=== PATIENT | male | born 1995 | race Hispanic/Latino ===

== ENCOUNTER 2018-10-13 23:35 | Observation (INO) | payer BC, OTHER ==
[2018-10-14 00:20] LABS: Absolute Lymphocytes (CBC) 2.4 K/uL (0.7-4.9); Basophils % 0.6 % (0-1.3); Hematocrit 44.9 % (39.6-49.0); Lymphocytes % 15.9 % (15.3-44.8); MPV 10.4 fL (7.6-11.3); RBC Red Blood Cell Count 5.73 M/uL (4.33-5.43)
[2018-10-14] MEDS ORDERED: NA CHLORIDE 0.9% 1,000 ML ONE (00:39)
[2018-10-14 00:41] LABS: ALT/SGPT 17 U/L (12-78); AST/SGOT 18 U/L (15-37); Albumin 4.6 g/dL (3.4-5.0); Alkaline Phosphatase 74 U/L (45-117); BUN Blood Urea Nitrogen 13 mg/dL (7-18); Bicarbonate 28 mmol/L (21-32); Bilirubin Direct 0.1 mg/dL (0-0.2); Bilirubin Total 0.6 mg/dL (0.2-1.0); Glucose Level 95 mg/dL (74-106); Lipase 96 U/L (73-393); Potassium 3.2 mmol/L (3.5-5.1); Protein, Total 7.6 g/dL (6.4-8.2); Sodium Level 141 mmol/L (136-145)
[2018-10-14] MEDS ORDERED: PIPER/TAZO/NS 3.375gm 3.375 GM/100 ML BAG ONE (01:48)
--- NOTE | 2018-10-14 01:54 | ER ---
Nurse's Notes [facility] Name: Rodrigo Mart III Age: 23 yrs Sex: Male : 1995 Arrival Date: 10/13/2018 Time: 23:39 Bed 6 Private MD: Diagnosis: Acute appendicitis Presentation: 10/13 23:43 Presenting complaint: Patient states: right lower quadrant pain since 1100. pt denies ak1 N/V/D. Transition of care: patient was not received from another setting of care. Onset of symptoms is unknown. Risk Assessment: Do you want to hurt yourself or someone else? Patient reports no desire to harm self or others. Initial Sepsis Screen: Does the patient meet any 2 criteria? No. Patient's initial sepsis screen is negative. Does the patient have a suspected source of infection? No. Patient's initial sepsis screen is negative. Care prior to arrival: None. 23:43 Method Of Arrival: Ambulatory ak1 23:43 Acuity: DIXON 3 ak1 Triage Assessment: 23:45 General: Appears in no apparent distress. Behavior is calm, cooperative. Pain: ak1 Complains of pain in right lower quadrant. Historical: - Allergies: 23:45 No Known Allergies; ak1 - Home Meds: 23:45 None [Active]; ak1 - PMHx: 23:45 None; ak1 - PSHx: 23:45 None; ak1 - Immunization history:: Adult Immunizations unknown. - Social history:: Smoking status: Patient/guardian denies using tobacco. - Ebola Screening: : No symptoms or risks identified at this time. Screenin:47 Abuse screen: Denies threats or abuse. Denies injuries from another. Nutritional ak1 screening: No deficits noted. Tuberculosis screening: No symptoms or risk factors identified. Fall Risk None identified. Assessment: 10/14 00:12 General: Appears in no apparent distress. Behavior is appropriate for age. Pain: lp1 Complains of pain in right lower quadrant. Neuro: Level of Consciousness is awake, alert, obeys commands. Cardiovascular: Patient's skin is warm and dry. Respiratory: Respiratory effort is even, unlabored. GI: Abdomen is flat, Bowel sounds present X 4 quads. Abdomen is tender to palpation in right lower quadrant. : Denies burning with urination. EENT: No signs and/or symptoms were reported regarding the EENT system. Derm: Skin is pink, warm \T\ dry. Musculoskeletal: No deficits noted. 01:30 Reassessment: Provider at bedside to discuss results with patient. lp1 02:40 Reassessment: Patient complaint of RLQ abdominal pain; See Avisena orders for med lp1 administration. Vital Signs: 10/13 23:45 BP 136 / 87; Pulse 73; Resp 16; Temp 98.0(TE); Pulse Ox 100% on R/A; Weight 71.21 kg ak1 (R); Height 5 ft. 7 in. (170.18 cm) (R); Pain 09/02; 10/14 01:00 BP 139 / 81; Pulse 70; Resp 16; Pulse Ox 100% on R/A; lp1 02:07 BP 129 / 90; Pulse 72; Resp 16; Pulse Ox 100% on R/A; lp1 10/13 23:45 Body Mass Index 24.59 (71.21 kg, 170.18 cm) ak1 ED Course: 10/13 23:39 Patient arrived in ED. ds1 23:44 Triage completed. ak1 23:45 Arm band placed on Patient placed in an exam room, on a stretcher, Patient notified of ak1 wait time. 23:47 Patient has correct armband on for positive identification. Bed in low position. Call ak1 light in reach. Side rails up X 1. 23:55 Saul Fair NP is PHCP. pm1 23:55 Gonzalo Celeste MD is Attending Physician. pm1 23:56 Marge Grewal RN is Primary Nurse. lp1 10/14 00:12 Inserted saline lock: 20 gauge in right antecubital area, using aseptic technique. lp1 Blood collected. 00:32 Radiology exam delayed due to lab results not completed at this time. (BUN/Creatinine). eh 01:04 CT completed. Patient tolerated procedure well. Patient moved to CT via stretcher. Patient moved back from CT. 01:35 CT Abd/Pelvis - IV Contrast Only In Process Unspecified. EDMS 01:37 Willie Juarez MD is Hospitalizing Provider. pm1 02:06 No provider procedures requiring assistance completed. Patient admitted, IV remains in lp1 place. Administered Medications: 00:46 Drug: NS 0.9% 1000 ml Route: IV; Rate: 1000 ml; Site: left antecubital; bb 01:51 Follow up: IV Status: Completed infusion; IV Intake: 1000ml lp1 02:40 Drug: Zosyn 3.375 grams Route: IVPB; Infused Over: 60 mins; Site: right antecubital; lp1 02:54 Follow up: IV Status: Infusion continued upon admission lp1 Intake: 01:51 IV: 1000ml; Total: 1000ml. lp1 Outcome: 01:37 Decision to Hospitalize by Provider. pm1 02:06 Condition: stable lp1 02:06 Instructed on the need for admit. 02:25 Admitted to Med/surg accompanied by tech, family with patient, via wheelchair, room lp1 219, with chart, Report called to Sue Ogden RN 02:45 Patient left the ED. lp1 Signatures: Dispatcher [employer] EDMS Jaciel Schmitt Demi ds1 Ibeth Martínez RN RN bb Marge Grewal RN RN lp1 Cora Garcia RN RN ak1 Saul Fair, CAFETERIA TABLE ATTENDANT CAFETERIA TABLE ATTENDANT pm1 Corrections: (The following items were deleted from the chart) 02:56 02:56 Patient left the ED. lp1 lp1
--- NOTE | 2018-10-14 01:55 | EDPHYS ---
Physician Documentation [facility] Name: Rodrigo Mart III Age: 23 yrs Sex: Male : 1995 Arrival Date: 10/13/2018 Time: 23:39 Bed 6 Private MD: ED Physician Gonzalo Celeste HPI: 10/14 01:18 This 23 yrs old Male presents to ER via Ambulatory with complaints of pm1 Abdominal Pain. 01:18 The patient presents with abdominal pain right lower quadrant. Onset: The pm1 symptoms/episode began/occurred yesterday, at 11:00. The symptoms do not radiate. Associated signs and symptoms: none. Pertinent negatives: nausea, vomiting, and diarrhea, chest pain, shortness of breath, testicular pain. The symptoms are described as crampy. Modifying factors: The symptoms are alleviated by nothing, the symptoms are aggravated by nothing. Severity of pain: in the emergency department the pain is unchanged. The patient has not experienced similar symptoms in the past. The patient has not recently seen a physician. Historical: - Allergies: 10/13 23:45 No Known Allergies; ak1 - Home Meds: 23:45 None [Active]; ak1 - PMHx: 23:45 None; ak1 - PSHx: 23:45 None; ak1 - Immunization history:: Adult Immunizations unknown. - Social history:: Smoking status: Patient/guardian denies using tobacco. - Ebola Screening: : No symptoms or risks identified at this time. ROS: 10/14 01:18 Constitutional: Negative for fever, chills, and weight loss, Eyes: Negative for injury, pm1 pain, redness, and discharge, ENT: Negative for injury, pain, and discharge, Neck: Negative for injury, pain, and swelling, Cardiovascular: Negative for chest pain, palpitations, and edema, Respiratory: Negative for shortness of breath, cough, wheezing, and pleuritic chest pain. Back: Negative for injury and pain, : Negative for injury, bleeding, discharge, and swelling, MS/Extremity: Negative for injury and deformity, Skin: Negative for injury, rash, and discoloration, Neuro: Negative for headache, weakness, numbness, tingling, and seizure. Abdomen/GI: Positive for abdominal pain, of the right lower quadrant, Negative for nausea, vomiting, and diarrhea. Exam: 01:18 Constitutional: This is a well developed, well nourished patient who is awake, alert, pm1 and in no acute distress. Head/Face: Normocephalic, atraumatic. Eyes: Pupils equal round and reactive to light, extra-ocular motions intact. Lids and lashes normal. Conjunctiva and sclera are non-icteric and not injected. Cornea within normal limits. Periorbital areas with no swelling, redness, or edema. ENT: Nares patent. No nasal discharge, no septal abnormalities noted. Tympanic membranes are normal and external auditory canals are clear. Oropharynx with no redness, swelling, or masses, exudates, or evidence of obstruction, uvula midline. Mucous membranes moist. Neck: Trachea midline, no thyromegaly or masses palpated, and no cervical lymphadenopathy. Supple, full range of motion without nuchal rigidity, or vertebral point tenderness. No Meningismus. Chest/axilla: Normal chest wall appearance and motion. Nontender with no deformity. No lesions are appreciated. Cardiovascular: Regular rate and rhythm with a normal S1 and S2. No gallops, murmurs, or rubs. Normal PMI, no JVD. No pulse deficits. Respiratory: Lungs have equal breath sounds bilaterally, clear to auscultation and percussion. No rales, rhonchi or wheezes noted. No increased work of breathing, no retractions or nasal flaring. Abdomen/GI: Soft, non-tender, with normal bowel sounds. No distension or tympany. No guarding or rebound. No evidence of tenderness throughout. Back: No spinal tenderness. No costovertebral tenderness. Full range of motion. Skin: Warm, dry with normal turgor. Normal color with no rashes, no lesions, and no evidence of cellulitis. MS/ Extremity: Pulses equal, no cyanosis. Neurovascular intact. Full, normal range of motion. 01:18 Neuro: Orientation: is normal, Motor: is normal, moves all fours. Vital Signs: 10/13 23:45 BP 136 / 87; Pulse 73; Resp 16; Temp 98.0(TE); Pulse Ox 100% on R/A; Weight 71.21 kg ak1 (R); Height 5 ft. 7 in. (170.18 cm) (R); Pain 7/10; 10/14 01:00 BP 139 / 81; Pulse 70; Resp 16; Pulse Ox 100% on R/A; lp1 02:07 BP 129 / 90; Pulse 72; Resp 16; Pulse Ox 100% on R/A; lp1 10/13 23:45 Body Mass Index 24.59 (71.21 kg, 170.18 cm) ak1 MDM: 10/13 23:[address] [facility] 10/14 01:19 Data reviewed: vital signs. Data interpreted: Pulse oximetry: on room air is 100 %. pm1 Interpretation: normal. 01:33 Counseling: I had a detailed discussion with the patient and/or guardian regarding: the pm1 historical points, exam findings, and any diagnostic results supporting the discharge/admit diagnosis, lab results, radiology results, the need for further work-up and treatment in the hospital. 01:41 Physician consultation: Willie Juarez MD was called at 01:41, was contacted at 01:41, pm1 regarding admission, patient's condition, and will see patient In AM. 10/13 23:55 Order name: Basic Metabolic Panel pm1 10/13 23:55 Order name: CBC with Diff; Complete Time: 01:20 pm1 10/13 23:55 Order name: Creatinine for Radiology; Complete Time: 01:20 pm1 10/13 23:55 Order name: Hepatic Function pm1 10/13 23:55 Order name: Lipase pm1 10/13 23:56 Order name: Basic Metabolic Panel EDWA 10/13 23:55 Order name: IV Saline Lock; Complete Time: 00:13 pm1 10/13 23:55 Order name: Labs collected and sent; Complete Time: 00:13 pm1 10/14 00:20 Order name: CT Abd/Pelvis - IV Contrast Only pm1 10/14 00:21 Order name: NPO; Complete Time: 00:47 pm1 Administered Medications: 00:46 Drug: NS 0.9% 1000 ml Route: IV; Rate: 1000 ml; Site: left antecubital; bb 01:51 Follow up: IV Status: Completed infusion; IV Intake: 1000ml lp1 02:40 Drug: Zosyn 3.375 grams Route: IVPB; Infused Over: 60 mins; Site: right antecubital; lp1 02:54 Follow up: IV Status: Infusion continued upon admission lp1 Disposition: 09:37 Co-signature as Attending Physician, Gonzalo Celeste MD I agree with the assessment and justus plan of care. Disposition: 10/14/18 01:37 Hospitalization ordered by Willie Juarez for Observation. Preliminary diagnosis is Acute appendicitis. - Bed requested for Telemetry/MedSurg (observation). - Status is Observation. lp1 - Condition is Stable. - Problem is new. - Symptoms have improved. UTI on Admission? No Signatures: Dispatcher [employer] EDWA Nancy Croft, RN RN Gonzalo Chen MD MD cha Ballard, Brenda, RN RN bb Marge Grewal, RN RN lp1 Cora Garcia, RN RN ak1 Saul Fair, NEWS EDITOR NEWS EDITOR pm1 Corrections: (The following items were deleted from the chart) 01:51 01:37 Hospitalization Ordered by Willie Juarez MD for Observation. Preliminary diagnosis is Acute appendicitis. Bed requested for Telemetry/MedSurg (observation). Status is Observation. Condition is Stable. Problem is new. Symptoms have improved. UTI on Admission? No. pm1 02:56 01:51 10/14/2018 01:37 Hospitalization Ordered by Willie Juarez MD for Observation. lp1 Preliminary diagnosis is Acute appendicitis. Bed requested for Telemetry/MedSurg (observation). Status is Observation. Condition is Stable. Problem is new. Symptoms have improved. UTI on Admission? No. mw
[2018-10-14] MEDS ORDERED: ONDANSETRON 4 MG/2 ML VIAL IV PRN (02:32)
[2018-10-14] MEDS: MORPHINE 4 MG/ML SYR IV PRN ×3 (02:45→22:10)
[2018-10-14 02:51] VITALS: BMI 24.5
[2018-10-14] MEDS: NA CHLORIDE 0.9% 1,000 ML IV SCH ×2 (03:01→10:32)
[2018-10-14] MEDS ORDERED: PIPER/TAZO/NS 3.375gm 3.375 GM/100 ML BAG IVPB SCH ×2 (06:00→12:00)
[2018-10-14] MEDS: PIPER/TAZO/NS 3.375gm 3.375 GM/100 ML BAG IVPB SCH ×2 (09:41→16:57)
--- NOTE | 2018-10-14 11:11 | RAD REPORT ---
EXAM DESCRIPTION: NICOLE GALLAGHER [id number] - Abdomen Pelvis W Contrast ADDENDUM #1 THIS REPORT CONTAINS FINDINGS THAT MAY BE CRITICAL TO PATIENT'S CARE: The findings were verbally discussed via telephone conference with Gonzalo Celeste by Dr. Bowman on 10/14/2018 1:32 AM CDT. The results were acknowledged and understood. Electronically signed by: Shay Bowman DO 10/14/2018 1:32 AM CDT End of Addendum EXAM DESCRIPTION: CT Abdomen and Pelvis With Intravenous Contrast CLINICAL HISTORY: The patient is 23 years old and is Male; RLQ PAIN TECHNIQUE: Axial computed tomography images of the abdomen and pelvis with intravenous contrast. S agittal and coronal reformatted images were created and reviewed. This CT exam was performed using one or more of the following dose reduction techniques: automated exposure control, adjustment of t he mA and/or kV according to patient size, and/or use of iterative reconstruction technique. COMPARISON: None. FINDINGS: LUNG BASES: Unremarkable. No mass. No consolidation. ABDOMEN: LIVER: Unremarkable. No mass. GALLBLADDER AND BILE DUCTS: Unremarkable. No calcified stones. No ductal dilation. PANCREAS: Unremarkable. No mass. No ductal dilation. SPLEEN: Unremarkable. No splenomegaly. ADRENALS: Unremarkable. No mass. KIDNEYS AND URETERS: Unremarkable. No solid mass. No hydronephrosis. STOMACH AND BOWEL: Enteric contrast in the distal small bowel. No obstruction. No mucosal thickening. PELVIS: APPENDIX: Severely thickened appendix measuring up to 1.5 cm with periappendiceal stranding and 6 mm appendicolith in its proximal aspect. Small appendicolith tearing and a distal appendix is also vi sualized. BLADDER: Bladder is decompressed. REPRODUCTIVE: Unremarkable as visualized. ABDOMEN and PELVIS: INTRAPERITONEAL SPACE: Small amount of free pelvic fluid. No free air. BONES/JOINTS: No acute fracture. No dislocation. SOFT TISSUES: Unremarkable. VASCULATURE: Unremarkable. No abdominal aortic aneurysm. LYMPH NODES: Unremarkable. No enlarged lymph nodes. IMPRESSION: 1. Findings suggestive of acute appendicitis with 6 mm proximal appendicolith. No perf oration or organized fluid collection at this time. 2. Small amount of free pelvic fluid. Electronically signed by: Shay Bowman DO 10/14/2018 1:30 AM CDT Due to temporary technical issues with the PACS/Fluency reporting system, reports are being signed by the in house radiologist as a courtesy to ensure prompt reporting. The interpreting radiologist is f ully responsible for the content of the report.
[2018-10-14] MEDS: KCL 20 MEQ/100 mL IVPB 20 MEQ/100 ML BAG IV SCH ×2 (12:00→14:00)
[2018-10-14] MEDS ORDERED: PROPOFOL 200 MG/20 ML VIAL IV ONE (12:50)
[2018-10-14] MEDS ORDERED: MIDAZOLAM HCL 2 MG/2 ML INJ ONE (12:51)
[2018-10-14] MEDS ORDERED: GLYCOPYRROLATE 0.2 MG/ML SYR ONE (12:51)
[2018-10-14] MEDS ORDERED: LIDOCAINE 2% MPF 5 ML VIAL ONE (12:52)
[2018-10-14] MEDS ORDERED: FENTANYL CITR 250 MCG/5 ML ONE (12:52)
[2018-10-14] MEDS ORDERED: NEOSTIGMINE 1 MG/ML -10 ML VIAL ONE (12:55)
[2018-10-14] MEDS ORDERED: ROCURONIUM 50 MG/5 ML VIAL IV ONE (12:55)
--- NOTE | 2018-10-14 13:39 | P.HP ---
Date of Service: 10/14/18 PC: This 23-year-old male presents emerged room with severe right lower quadrant abdominal pain for diagnosis and treatment. HPC: Patient has had a history of abdominal pain earlier the day. Pain intensified and finally came to the emergency room last night. Was complaining of right lower quadrant abdominal pain that hurt when he walks. PMH: Negative PSHx: Denies a prior surgeries SOC: No known allergy SYS REVIEW: No cough, wheeze, shortness of breath. No chest pain or palpitations. Denies any urinary complaints O/E awake alert vital signs are stable HEENT: Within normal limit Chest: Chest movement equal bilaterally ABD: Tender with guarding in the right lower quadrant LOCO: Intact DATA: Elevated white cell count, CT scan demonstrates acute appendicitis IMPRESSION: Acute abdomen with appendicitis PLAN: I will take to the operating room for laparoscopic possible open appendectomy. The risks of this procedure have been discussed. The possibility of bleeding, infection, injury to bowel and surrounding structures have been outlined. The possible need for an open and/or further surgeries and procedures was discussed. Abscess and other unforeseen complications were described. He understands and wants us to proceed.
[2018-10-14] MEDS ORDERED: Ringers Lactate 1,000 ML IV ONE (13:43)
[2018-10-14] MEDS ORDERED: KETOROLAC 30 MG/ML INJ ONE (14:51)
[2018-10-14] MEDS ORDERED: MEPERIDINE HCL 25 MG/0.5 ML ONE (15:04)
--- NOTE | 2018-10-14 15:09 | P.OP ---
Preoperative diagnosis: Acute suppurative appendicitis Postoperative diagnosis: The same Primary procedure: Laparoscopic appendectomy Anesthesia: General Estimated blood loss: Less than 10 cc Specimen: 1 appendix Operative Technique: The patient brought the operating room placed supine on the table general endotracheal anesthesia, the area of the abdomen was prepped with a DuraPrep solution, he was draped in usual aseptic manner. A subumbilical incision was made. This brought down through the skin and subcutaneous tissue. The Visiport was used to enter the peritoneal cavity and created pneumoperitoneum to approximately 12 mm of mercury. Under direct vision a 5 mm trocar was placed in the lower midline and another 1 on the right lateral side of the abdomen. With the patient placed in Trendelenburg and rolled to the left we could visualize the right lower quadrant. We could see that the cecum was adherent down in the the pelvis. All on the right lateral pelvic sidewall just at the brim of the pelvis there was an inflammatory process. This was dissected the omentum was removed and we could see that this was an inflamed appendix. It was also in the retroperitoneum at that point and crawled up port along the lateral sidewall. At then had an inferior connection and came medial to the cecum. This area was some mobilize after opening up the retroperitoneum. We could see that there was a small amount of seepage of the appendiceal contents in this area. This was contained using irrigation and suction. The base of the appendix was identified. A linear Stapler was placed across. The appendix was then divided at this point. The mesentery of the appendix was taken down using a vascular reload. This pus was placed into the Endo-Catch and brought out through the umbilical trocar site. Attention was turned back towards the right lower quadrant. This retroperitoneal space was then irrigated with a copious amount of saline solution until the effluent was clear. We were able to effectively aspirate any spillage it had occurred during the dissection. The appendix the cecum was then allowed the flap back into its normal position. The irrigating fluid was completely aspirated from the peritoneal cavity. The umbilical trocar site was approximated using the Endo Close an absorbable suture. The pneumoperitoneum was now collapsed, the suture tied, and lele applied to the skin. At the end of the procedure he was in a stable condition when sent to the recovery room. Needle sponge instrument count were correct. No drains were placed. Complications: None Transferred to: Recovery Room Condition: Good
[2018-10-14] MEDS: MORPHINE 4 MG/ML SYR ONE ×2 (15:27→15:34)
[2018-10-14 15:48] VITALS: O2SAT 99
[2018-10-14] MEDS ORDERED: POTASSIUM CL SA 10 MEQ TAB PO ONE (18:00)
[2018-10-14] MEDS: HYDROCODONE/APAP 7.5/325 MG TAB PO PRN (19:36)
[2018-10-15] MEDS: NA CHLORIDE 0.9% 1,000 ML IV SCH ×4 (00:15→10:32)
[2018-10-15] MEDS: PIPER/TAZO/NS 3.375gm 3.375 GM/100 ML BAG IVPB SCH ×2 (00:16→07:46)
[2018-10-15] MEDS: MORPHINE 4 MG/ML SYR IV PRN (02:50)
[2018-10-15] MEDS: HYDROCODONE/APAP 7.5/325 MG TAB PO PRN (07:44)
[2018-10-15 08:22] VITALS: BP 124/62; TEMP 98.6
[2018-10-15] MEDS ORDERED: POTASSIUM 25 MEQ EFFERV TAB PO ONE (09:00)
== END 2018-10-15 11:45 | disposition home or self-care (01) ==
LOC: ER 23:35 → ERHOLD 10-14 01:44 → 2ND 10-14 02:15
PROVIDERS: ADMIT Surgery; ATTEND Surgery
PROC: 0DTJ4ZZ Resection of Appendix, Percutaneous Endoscopic Approach (ICD-10-PCS; principal; 2018-10-14 12:00)
DX: K35.80 Unspecified acute appendicitis (principal)
CPT/HCPCS: 44970; 96361; 85025; 80048; 36415 ×2; 84132; 80076; 88304; 83690; 74177; 96374; 99285; Q9967; J2704; J2710; J2250; J3010; J2543 ×2; J2175; J7030 ×4; J2405; G0378 ×2

== ENCOUNTER 2018-10-26 18:13 | Inpatient (IN) | payer BC ==
[2018-10-26] MEDS ORDERED: NA CHLORIDE 0.9% 1,000 ML ONE (19:47)
[2018-10-26 19:54] LABS: Hematocrit 43.4 % (39.6-49.0); MPV 9.7 fL (7.6-11.3); RBC Red Blood Cell Count 5.55 M/uL (4.33-5.43)
[2018-10-26 20:09] LABS: Albumin 3.4 g/dL (3.4-5.0); Bilirubin Direct 0.1 mg/dL (0-0.2); Bilirubin Total 0.4 mg/dL (0.2-1.0); Potassium 3.4 mmol/L (3.5-5.1); Protein, Total 8.8 g/dL (6.4-8.2)
[2018-10-26 20:26] LABS: Blood Morphology Comment NOT SEEN (NOT SEEN); Platelet Estimate INCR
--- NOTE | 2018-10-26 21:55 | P.HP ---
Date of Service: 10/26/18 PC: This 23-year-old male returns emergency room tonight with pelvic discomfort temperature and fever. HPC: Patient underwent a laparoscopic appendectomy approximately 2 weeks ago. Was seen recent my office for staple removal and had been doing well at that time. However today began to have fevers chills and felt on well. PMH: Negative PSHx: Status post appendectomy approximately 10 days ago SOC: No known allergy SYS REVIEW: Had been doing well until the day before yesterday. Tolerating a diet. Has a feeling of fullness down in his rectum O/E awake alert comfortable at the moment HEENT: Within normal limit Chest: Chest movement equal bilaterally ABD: Soft nontender LOCO: Intact DATA: Elevated white cell count, CT scan demonstrates pelvic abscess IMPRESSION: Zina agrawal is status post appendectomy PLAN: I will discuss tomorrow with the radiologist the possibilities of a percutaneous drainage of this abscess. If not we will do it laparoscopically. I have explained this to the patient and his . They understand and want to proceed. In the meantime IV fluids, NPO at midnight, and antibiotics as well as analgesics.
--- NOTE | 2018-10-26 22:25 | ER ---
Nurse's Notes [facility] Name: Rodrigo Mart III Age: 23 yrs Sex: Male : 1995 Arrival Date: 10/26/2018 Time: 18:14 Bed 27 Private MD: Diagnosis: Intra-abdominal abscess. S/P appendectomy Presentation: 10/26 18:17 Transition of care: patient was not received from another setting of care. Risk sv Assessment: Do you want to hurt yourself or someone else? Patient reports no desire to harm self or others. Care prior to arrival: Medication(s) given: dulcolax. 18:17 Method Of Arrival: Ambulatory sv 18:17 Note Pt currently in the bathroom. sv 18:31 Presenting complaint: Patient states: had appendix taken out 10/13/18, has been taking sv his pain prescriptions and stopped them on Friday. c/o lower abd pain and constipation. Onset of symptoms was October 26, 2018. Initial Sepsis Screen: Does the patient meet any 2 criteria? No. Patient's initial sepsis screen is negative. Does the patient have a suspected source of infection? No. Patient's initial sepsis screen is negative. 18:31 Acuity: DIXON 2 sv Triage Assessment: 18:34 General: Appears in no apparent distress. uncomfortable, slender, Behavior is calm, sv cooperative, appropriate for age. Pain: Complains of pain in right lower quadrant and left lower quadrant. Neuro: Level of Consciousness is awake, alert, obeys commands, Oriented to person, place, time, situation, Gait is steady. Respiratory: Respiratory effort is even, unlabored. GI: Reports lower abdominal pain, constipation. Historical: - Allergies: 18:17 No Known Allergies; sv - PSHx: 18:17 None; sv - Immunization history:: Adult Immunizations up to date. - Social history:: Smoking status: Patient/guardian denies using tobacco. - Ebola Screening: : No symptoms or risks identified at this time. Screenin:24 Abuse screen: Denies threats or abuse. Nutritional screening: No deficits noted. jv1 Tuberculosis screening: No symptoms or risk factors identified. Fall Risk None identified. Assessment: 19:26 GI: Bowel sounds present X 4 quads. Abd is soft and non tender Abdomen is tender to jv1 palpation X 4 quads. 19:28 General: Appears uncomfortable, well groomed, well developed, well nourished, Behavior jv1 is calm, cooperative, appropriate for age, Reports abdominal pain and constipatipation. Pain: Complains of pain in abdomen Quality of pain is described as aching. Neuro: No deficits noted. Cardiovascular: No deficits noted. Respiratory: No deficits noted. : No deficits noted. No signs and/or symptoms were reported regarding the genitourinary system. Derm: patient has 4 incision which are dry and open to air on the abdominal area from Lap Appy done last 10/13/[address] by Dr. Juarez. Musculoskeletal: No deficits noted. No signs and/or symptoms reported regarding the musculoskeletal system. 20:05 Reassessment: critical lab alert, WBC 23.0, Dr. Stout notified. jv1 21:30 Reassessment: Patient appears in no apparent distress at this time. Patient and/or jv1 family updated on plan of care and expected duration. Pain level reassessed. Patient is alert, oriented x 3, equal unlabored respirations, skin warm/dry/pink. 21:40 Reassessment: dr. Juarez with patient. jv1 22:40 Reassessment: Patient appears in no apparent distress at this time. No changes from jv1 previously documented assessment. Patient and/or family updated on plan of care and expected duration. Pain level reassessed. Patient is alert, oriented x 3, equal unlabored respirations, skin warm/dry/pink. 23:40 Reassessment: Patient appears in no apparent distress at this time. No changes from jv1 previously documented assessment. Patient and/or family updated on plan of care and expected duration. Pain level reassessed. Patient is alert, oriented x 3, equal unlabored respirations, skin warm/dry/pink. General: Appears in no apparent distress. Behavior is calm, cooperative, appropriate for age. Pain: Denies pain. Neuro: No deficits noted. Cardiovascular: No deficits noted. Respiratory: No deficits noted. GI: Bowel sounds present X 4 quads. : No deficits noted. No signs and/or symptoms were reported regarding the genitourinary system. 10/27 00:40 Reassessment: Patient appears in no apparent distress at this time. jv1 01:40 Reassessment: Patient appears in no apparent distress at this time. No changes from jv1 previously documented assessment. Patient and/or family updated on plan of care and expected duration. Pain level reassessed. Patient is alert, oriented x 3, equal unlabored respirations, skin warm/dry/pink. 02:40 Reassessment: Patient appears in no apparent distress at this time. Patient and/or jv1 family updated on plan of care and expected duration. Pain level reassessed. Patient is alert, oriented x 3, equal unlabored respirations, skin warm/dry/pink. General: Appears in no apparent distress. well groomed, well developed, well nourished. Pain: Denies pain. Vital Signs: 10/26 18:32 BP 125 / 73; Pulse 102; Resp 16; Temp 99; Pulse Ox 100% ; Weight 63.5 kg; Height 5 ft. sv 7 in. (170.18 cm); 19:30 BP 120 / 66; Pulse 97; Resp 18; Temp 97.8; Pulse Ox 100% ; jv1 20:30 BP 115 / 70; Pulse 80; Resp 18; Temp 98.0; Pulse Ox 98% ; jv1 21:30 BP 116 / 65; Pulse 88; Resp 18; Temp 98; Pulse Ox 98% ; jv1 22:30 BP 124 / 80; Pulse 89; Resp 18; Temp 100.4; jv1 23:30 BP 117 / 85; Pulse 88; Resp 18; Temp 100; Pulse Ox 98% on R/A; jv1 /03 00:04 BP 118 / 70; Pulse 89; Resp 18; Temp 99; Pulse Ox 98% on R/A; jv1 00:06 BP 118 / 70; Pulse 89; Resp 18; Temp 99; Pulse Ox 99% on R/A; jv1 00:07 BP 118 / 70; Pulse 89; Resp 18; Temp 100; Pulse Ox 98% on R/A; jv1 00:09 BP 118 / 70; Pulse 89; Resp 18; Temp 100; Pulse Ox 100% on R/A; jv1 00:09 BP 118 / 70; Pulse 89; Resp 18; Temp 100; Pulse Ox 99% on R/A; jv1 00:30 BP 119 / 80; Pulse 90; Resp 18; Temp 99; Pulse Ox 100% on R/A; jv1 01:30 BP 122 / 65; Pulse 90; Resp 18; Temp 98; Pulse Ox 100% on R/A; jv1 02:30 BP 121 / 65; Pulse 89; Resp 18; Temp 98.7; Pulse Ox 98% on R/A; jv1 02:30 BP 118 / 70; Pulse 89; Resp 18; Temp 98.5; Pulse Ox 100% on R/A; jv1 10/26 18:32 Body Mass Index 21.93 (63.50 kg, 170.18 cm) sv ED Course: 10/26 18:14 Patient arrived in ED. as 18:17 Arm band placed on. sv 18:32 Triage completed. sv 19:15 Initial lab(s) drawn, by me, sent to lab. Inserted saline lock: 20 gauge in right jp3 antecubital area, using aseptic technique. Blood collected. 19:24 Bed in low position. Call light in reach. Verbal reassurance given. Pulse ox on. NIBP jp3 on. 19:24 Patient maintains SpO2 saturation greater than 95% on room air. jp3 19:29 Lui Stout MD is Attending Physician. pkl 19:51 Oral contrast given. vm2 21:35 CT Abd/Pelvis - PO and IV Contrast In Process Unspecified. EDMS 22:22 Willie Juarez MD is Hospitalizing Provider. pkl 10/27 02:30 No provider procedures requiring assistance completed. jv1 02:30 IV is patent, is intact, with fluids infusing freely, with good blood return, jv1 Administered Medications: 10/26 19:52 Drug: NS 0.9% 1000 ml Route: IV; Rate: 125 ml/hr; Site: right antecubital; jv1 10/27 02:30 Follow up: BP 118 / 70; Pulse 89 bpm; Resp 18 bpm; Temp 98.5; Pulse Ox 100% RA; Urine jv1 output 800 ml; Response: No adverse reaction; Rate change 125 ml/hr; IV Status: Infusion continued upon admission; IV Intake: 1100ml 10/26 22:36 Drug: K-Dur 20 mEq Route: PO; jv1 10/27 00:06 Follow up: BP 118 / 70; Pulse 89 bpm; Resp 18 bpm; Temp 99; Pulse Ox 99% RA jv1 10/26 22:37 Drug: Zosyn 3.375 grams Route: IVPB; Infused Over: 60 mins; Site: right antecubital; jv1 10/27 00:04 Follow up: BP 118 / 70; Pulse 89 bpm; Resp 18 bpm; Temp 99; Pulse Ox 98% RA jv1 03:12 Follow up: Response: No adverse reaction jv1 10/26 23:28 Drug: Tylenol 650 mg Route: PO; jv1 10/27 00:09 Follow up: BP 118 / 70; Pulse 89 bpm; Resp 18 bpm; Temp 100; Pulse Ox 99% RA jv1 03:13 Follow up: Response: No adverse reaction; Temperature is decreased jv1 10/26 23:29 Drug: Zofran 4 mg Route: IVP; Site: right antecubital; jv1 10/27 00:09 Follow up: BP 118 / 70; Pulse 89 bpm; Resp 18 bpm; Temp 100; Pulse Ox 100% RA jv1 03:13 Follow up: Response: No adverse reaction jv1 10/26 23:30 Drug: morphine 2 mg {Note: RASS 0.} Route: IVP; Site: right antecubital; jv1 10/27 00:07 Follow up: BP 118 / 70; Pulse 89 bpm; Resp 18 bpm; Temp 100; Pulse Ox 98% RA jv1 03:12 Follow up: Response: No adverse reaction jv1 Intake: 02:30 IV: 1100ml; Total: 1100ml. jv1 Output: 02:30 Urine: 800ml; Total: 800ml. jv1 Outcome: 10/26 22:23 Decision to Hospitalize by Provider. pkl 10/27 01:00 Instructed on the need for admit. jv1 02:30 Admitted to Tele accompanied by nurse, via wheelchair, room 404, with chart, Report jv1 called to Becca Blackwood RN 02:30 Condition: stable jv1 03:06 Patient left the ED. jv1 Signatures: Dispatcher [employer] EDMS Cassi Nava, RN RN Lui Romeo MD MD pkl Martinez, Amelia as McGuire, Victoria 2 Jorge Sommers 3 Lily Adler RN RN jv1 Corrections: (The following items were deleted from the chart) 10/26 18:32 18:17 Care prior to arrival: None. [facility] 18:34 18:31 Presenting complaint: Patient states: had appendix taken out 10/13/18, has been sv taking his pain prescriptions and stopped them on Friday. sv 18:34 18:31 Acuity: DIXON 3 sv sv 18:34 18:32 BP 125 / 73; Pulse 88bpm; Resp 16bpm; Pulse Ox 100%; Temp 99F; 63.5 kg; Height 5 sv ft. 7 in.; BMI: 21.9; sv
--- NOTE | 2018-10-26 22:26 | EDPHYS ---
Physician Documentation [facility] Name: Rodrigo Mart III Age: 23 yrs Sex: Male : 1995 Arrival Date: 10/26/2018 Time: 18:14 Bed 27 Private MD: ED Physician Lui Stout HPI: 10/26 19:44 This 23 yrs old Male presents to ER via Ambulatory with complaints of pkl Abdominal Pain, Constipation. 19:44 The patient presents with abdominal pain in the lower abdomen. Onset: The pkl symptoms/episode began/occurred 10 day(s) ago. The symptoms do not radiate. Associated signs and symptoms: Pertinent positives: constipation. Patient had appendectomy by Dr. Juarez on 10/13/18. Started having lower abdominal pain 3 days post operation. Had lele removed 4 days ago.. Historical: - Allergies: 18:17 No Known Allergies; sv - PSHx: 18:17 None; sv - Immunization history:: Adult Immunizations up to date. - Social history:: Smoking status: Patient/guardian denies using tobacco. - Ebola Screening: : No symptoms or risks identified at this time. ROS: 19:49 Eyes: Negative for injury, pain, redness, and discharge, ENT: Negative for injury, pkl pain, and discharge, Neck: Negative for injury, pain, and swelling, Cardiovascular: Negative for chest pain, palpitations, and edema, Respiratory: Negative for shortness of breath, cough, wheezing, and pleuritic chest pain. 19:49 Abdomen/GI: Positive for abdominal pain, of the lower abdomen. 19:49 Back: Negative for acute changes. 19:49 : Negative for urinary symptoms. 19:49 MS/extremity: Negative for acute changes. 19:49 Skin: Negative for rash. 19:49 Neuro: Negative for altered mental status. Exam: 19:49 Head/Face: Normocephalic, atraumatic. Eyes: Pupils equal round and reactive to light, pkl extra-ocular motions intact. Lids and lashes normal. Conjunctiva and sclera are non-icteric and not injected. Cornea within normal limits. Periorbital areas with no swelling, redness, or edema. ENT: Nares patent. No nasal discharge, no septal abnormalities noted. Tympanic membranes are normal and external auditory canals are clear. Oropharynx with no redness, swelling, or masses, exudates, or evidence of obstruction, uvula midline. Mucous membranes moist. Neck: Trachea midline, no thyromegaly or masses palpated, and no cervical lymphadenopathy. Supple, full range of motion without nuchal rigidity, or vertebral point tenderness. No Meningismus. Chest/axilla: Normal chest wall appearance and motion. Nontender with no deformity. No lesions are appreciated. Cardiovascular: Regular rate and rhythm with a normal S1 and S2. No gallops, murmurs, or rubs. Normal PMI, no JVD. No pulse deficits. Respiratory: Lungs have equal breath sounds bilaterally, clear to auscultation and percussion. No rales, rhonchi or wheezes noted. No increased work of breathing, no retractions or nasal flaring. 19:49 Abdomen/GI: Bowel sounds: normal, Palpation: soft, mild abdominal tenderness, in the lower abdomen. 19:49 Back: Exam negative for acute changes. 19:49 : Exam negative for acute changes. 19:49 Musculoskeletal/extremity: Exam is negative for acute changes. 19:49 Skin: Exam negative for rash. 19:49 Neuro: Orientation: is normal, Mentation: is normal, Cranial nerves: grossly normal, Motor: is normal. Vital Signs: 18:32 BP 125 / 73; Pulse 102; Resp 16; Temp 99; Pulse Ox 100% ; Weight 63.5 kg; Height 5 ft. sv 7 in. (170.18 cm); 19:30 BP 120 / 66; Pulse 97; Resp 18; Temp 97.8; Pulse Ox 100% ; jv1 20:30 BP 115 / 70; Pulse 80; Resp 18; Temp 98.0; Pulse Ox 98% ; jv1 21:30 BP 116 / 65; Pulse 88; Resp 18; Temp 98; Pulse Ox 98% ; jv1 22:30 BP 124 / 80; Pulse 89; Resp 18; Temp 100.4; jv1 23:30 BP 117 / 85; Pulse 88; Resp 18; Temp 100; Pulse Ox 98% on R/A; jv1 09/03 00:04 BP 118 / 70; Pulse 89; Resp 18; Temp 99; Pulse Ox 98% on R/A; jv1 00:06 BP 118 / 70; Pulse 89; Resp 18; Temp 99; Pulse Ox 99% on R/A; jv1 00:07 BP 118 / 70; Pulse 89; Resp 18; Temp 100; Pulse Ox 98% on R/A; jv1 00:09 BP 118 / 70; Pulse 89; Resp 18; Temp 100; Pulse Ox 100% on R/A; jv1 00:09 BP 118 / 70; Pulse 89; Resp 18; Temp 100; Pulse Ox 99% on R/A; jv1 00:30 BP 119 / 80; Pulse 90; Resp 18; Temp 99; Pulse Ox 100% on R/A; jv1 01:30 BP 122 / 65; Pulse 90; Resp 18; Temp 98; Pulse Ox 100% on R/A; jv1 02:30 BP 121 / 65; Pulse 89; Resp 18; Temp 98.7; Pulse Ox 98% on R/A; jv1 02:30 BP 118 / 70; Pulse 89; Resp 18; Temp 98.5; Pulse Ox 100% on R/A; jv1 10/26 18:32 Body Mass Index 21.93 (63.50 kg, 170.18 cm) sv MDM: 10/26 19:29 Patient medically screened. pkl 22:22 Data reviewed: vital signs, nurses notes, lab test result(s), radiologic studies, CT pkl scan. 22:24 ED course: Talked to Dr. Knott For observation. pkl 10/26 19:29 Order name: Basic Metabolic Panel; Complete Time: 21:45 fc 10/26 19:29 Order name: CBC with Diff; Complete Time: 21:45 10/26 19:29 Order name: Creatinine for Radiology; Complete Time: 21:45 10/26 19:29 Order name: Hepatic Function; Complete Time: 21:45 fc 10/26 19:29 Order name: Lipase; Complete Time: 21:45 10/26 20:06 Order name: Manual Differential; Complete Time: 21:45 EDMS 10/26 19:37 Order name: CT Abd/Pelvis - PO and IV Contrast pkl 10/27 01:32 Order name: Basic Metabolic Panel EDMS 10/27 01:32 Order name: Basic Metabolic Panel EDMS 10/27 01:32 Order name: CBC with Automated Diff EDMS 10/27 01:32 Order name: CBC with Automated Diff EDMS 10/26 19:29 Order name: IV Saline Lock; Complete Time: 19:41 fc 10/26 19:29 Order name: Labs collected and sent; Complete Time: 19:41 fc Administered Medications: 19:52 Drug: NS 0.9% 1000 ml Route: IV; Rate: 125 ml/hr; Site: right antecubital; jv1 10/27 02:30 Follow up: BP 118 / 70; Pulse 89 bpm; Resp 18 bpm; Temp 98.5; Pulse Ox 100% RA; Urine jv1 output 800 ml; Response: No adverse reaction; Rate change 125 ml/hr; IV Status: Infusion continued upon admission; IV Intake: 1100ml 10/26 22:36 Drug: K-Dur 20 mEq Route: PO; jv1 10/27 00:06 Follow up: BP 118 / 70; Pulse 89 bpm; Resp 18 bpm; Temp 99; Pulse Ox 99% RA jv1 10/26 22:37 Drug: Zosyn 3.375 grams Route: IVPB; Infused Over: 60 mins; Site: right antecubital; jv1 10/27 00:04 Follow up: BP 118 / 70; Pulse 89 bpm; Resp 18 bpm; Temp 99; Pulse Ox 98% RA jv1 03:12 Follow up: Response: No adverse reaction jv1 10/26 23:28 Drug: Tylenol 650 mg Route: PO; jv1 10/27 00:09 Follow up: BP 118 / 70; Pulse 89 bpm; Resp 18 bpm; Temp 100; Pulse Ox 99% RA jv1 03:13 Follow up: Response: No adverse reaction; Temperature is decreased jv1 10/26 23:29 Drug: Zofran 4 mg Route: IVP; Site: right antecubital; jv1 10/27 00:09 Follow up: BP 118 / 70; Pulse 89 bpm; Resp 18 bpm; Temp 100; Pulse Ox 100% RA jv1 03:13 Follow up: Response: No adverse reaction jv1 10/26 23:30 Drug: morphine 2 mg {Note: RASS 0.} Route: IVP; Site: right antecubital; jv1 10/27 00:07 Follow up: BP 118 / 70; Pulse 89 bpm; Resp 18 bpm; Temp 100; Pulse Ox 98% RA jv1 03:12 Follow up: Response: No adverse reaction jv1 Disposition: 10/26/18 22:23 Hospitalization ordered by Willie Juarez for Observation. Preliminary diagnosis is Intra-abdominal abscess. S/P appendectomy. - Bed requested for Telemetry/MedSurg (observation). - Status is Observation. jv1 - Condition is Stable. - Problem is new. - Symptoms are unchanged. UTI on Admission? No Signatures: Dispatcher [employer] EDCassi Castro RN RN Nancy Croft RN RN Lui Stout MD MD pkl Holli Roberts RN RN Lily Adler RN RN jv1 Corrections: (The following items were deleted from the chart) 01:11 10/26 22:23 Hospitalization Ordered by Willie Juarez MD for Observation. Preliminary diagnosis is Intra-abdominal abscess. S/P appendectomy. Bed requested for Telemetry/MedSurg (observation). Status is Observation. Condition is Stable. Problem is new. Symptoms are unchanged. UTI on Admission? No. pkl 10/27 03:06 01:11 10/26/2018 22:23 Hospitalization Ordered by Willie Juarez MD for Observation. jv1 Preliminary diagnosis is Intra-abdominal abscess. S/P appendectomy. Bed requested for Telemetry/MedSurg (observation). Status is Observation. Condition is Stable. Problem is new. Symptoms are unchanged. UTI on Admission? No. mw
[2018-10-26] MEDS ORDERED: POTASSIUM CL SA 10 MEQ TAB PO ONE (22:32)
[2018-10-26] MEDS ORDERED: PIPER/TAZO/NS 3.375gm 3.375 GM/100 ML BAG ONE (22:32)
[2018-10-26] MEDS ORDERED: ACETAMINOPHEN 325 MG TABLET ONE (23:31)
[2018-10-26] MEDS ORDERED: MORPHINE 2 MG/ML SYR ONE (23:32)
[2018-10-26] MEDS ORDERED: ONDANSETRON 4 MG/2 ML VIAL ONE ×2 (23:32→23:33)
[2018-10-27] MEDS ORDERED: ONDANSETRON 4 MG/2 ML VIAL IV PRN (00:54)
[2018-10-27] MEDS: NA CHLORIDE 0.9% 1,000 ML IV SCH ×3 (01:00→21:00)
[2018-10-27 02:54] VITALS: BMI 22.7
[2018-10-27] MEDS ORDERED: PIPERACIL/TAZO 3.375 GM VIAL IV ONE (04:02)
[2018-10-27] MEDS ORDERED: NA CHLORIDE 0.9% 100 ML IV ONE (04:05)
[2018-10-27] MEDS ORDERED: PIPER/TAZO/NS 3.375gm 3.375 GM/100 ML BAG IVPB SCH (06:00)
[2018-10-27] MEDS: MORPHINE 2 MG/ML SYR IV PRN ×4 (06:58→22:30)
[2018-10-27 07:34] LABS: Urine Appearance CLEAR; Urine Bilirubin NEGATIVE (NEG); Urine Blood NEGATIVE (NEG); Urine Color YELLOW; Urine Glucose NEGATIVE (NEG); Urine Protein TRACE (NEG); Urine Specific Gravity >=1.030 (1.005-1.030); Urine Urobilinogen 0.2 mg/dL (0.2-1.0)
[2018-10-27 08:43] LABS: Urine Microscopic Reflex ORDER UMIC
[2018-10-27 08:45] LABS: Urine Bacteria <20 /HPF (NONE SEEN); Urine Culture Reflex Order NOT NEEDED; Urine RBC <5 /HPF (NONE SEEN)
--- NOTE | 2018-10-27 09:34 | RAD REPORT ---
EXAM DESCRIPTION: CT - Abdomen Pelvis W Contrast - 10/27/2018 6:59 am CLINICAL HISTORY: Abdominal pain. Recent appendectomy. TECHNIQUE: CT scan of the abdomen and pelvis was performed with oral and intravenous contrast. 5 mm arterial phase axial images of the abdomen were obtained. 5 mm venous phase axial images of the abdomen and pelvis were obtained along with coronal and sagitta l reformatted images. DOSE OPTIMIZATION: This facility uses dose optimization techniques as appropriate to perform exams, including at least one of the following techniques: 1. Automated exposure control. 2. Adjustment of the mA and/or kV according to patient size (this includes techniques or standardized protocols for targeted exams where dose is matched to the indication/reason for exam, i.e. extremiti es or head). 3. Use of iterative reconstructive technique. INTRAVENOUS CONTRAST: Not documented. ORAL CONTRAST: Not documented. COMPARISON: 10/14/2018. FINDINGS: Lung Bases: Normal. Liver: Normal. Spleen: Normal. Pancreas: Normal. Gallbladder: Nondistended. Adrenal Glands: Normal. Kidneys: Normal. Retroperitoneal Structures: Normal. Bowel Survey: There is a moderate-sized phlegmon at the appendectomy site which measures 3.7 x 3.7 x 5.5 cm maximal AP, transverse, longitudinal dimensions. There is moderately severe mural thickening of the distal ileal bowel loops as well as the rectosigmo id colon. These findings suggest an inflammatory response. Prostate Gland: Normal in size. Urinary Bladder: Normal. Peritoneal Cavity: There are 3 adjacent loculated fluid collections within the midline of the lower pelvis superior and posterior with respect to the urinary bladder and anterior to the rectosigmoid colon. The largest fluid collection measures 4.0 x 5.4 x 5.0 cm in maximal AP, transverse, longitudinal dime nsions respectively. The second largest fluid collection measures 2.4 x 2.7 x 2.9 cm maximal AP, transverse, longitudinal dimensions. The smallest fluid collection measures 1.5 x 1.7 x 1.7 cm in maximal AP, transverse, longitudinal dim ensions respectively. Mesenteric Structures: Normal. Abdominal Wall: Mild edematous changes of the umbilicus which are likely normal for a recent laparosc opic procedure. . Bony Structures: No suspicious lesions. IMPRESSION: 1. Findings suggestive of postoperative infection in the pelvis with a moderate-sized ph legmon at the appendectomy site, 3 discrete loculated fluid collection suspicious for developing absc esses, and mural thickening of multiple distal small bowel loops as well as the rectosigmoid colon. Electronically signed by: Orville Perez MD 10/26/2018 9:56 PM CDT Due to temporary technical issues with the PACS/Fluency reporting system, reports are being signed by the in house radiologist as a courtesy to ensure prompt reporting. The interpreting radiologist is f ully responsible for the content of the report.
[2018-10-27] MEDS ORDERED: PROPOFOL 200 MG/20 ML VIAL IV ONE (13:27)
[2018-10-27] MEDS ORDERED: FENTANYL CITR 100 MCG/2 ML ONE ×2 (13:28→14:31)
[2018-10-27] MEDS ORDERED: MIDAZOLAM HCL 2 MG/2 ML INJ ONE ×2 (13:28→15:49)
[2018-10-27] MEDS ORDERED: LIDOCAINE 2% MPF 5 ML VIAL ONE (13:28)
[2018-10-27] MEDS ORDERED: GLYCOPYRROLATE 0.2 MG/ML SYR ONE (13:30)
[2018-10-27] MEDS ORDERED: ONDANSETRON 4 MG/2 ML VIAL ONE (13:30)
[2018-10-27] MEDS ORDERED: NEOSTIGMINE 1 MG/ML -10 ML VIAL ONE (13:35)
--- NOTE | 2018-10-27 14:01 | P.PN ---
Date of Service: 10/27/18 S: Patient does as abdominal discomfort today, no specific complaints. O: Abdomen is soft. No peritoneal signs. A: Pelvic abscess P: I discussed the case with the radiologist. He has not feel he can offer percutaneous drainage of this abscess to establish definitive resolution of the problem. I discussed this with the patient. I will take him to the operating room for laparoscopic possible open drainage of pelvic abscess. The risks of this procedure have been discussed. The possibilities of bleeding, infection, once again need for further surgeries and procedures and indeed on containing abscess formation were explained. He understands and wants to proceed.
[2018-10-27] MEDS ORDERED: ROCURONIUM 50 MG/5 ML VIAL IV ONE ×2 (14:09→14:50)
[2018-10-27] MEDS ORDERED: Ringers Lactate 1,000 ML IV ONE (14:29)
[2018-10-27] MEDS: HYDROMORPHONE HCL 1 MG/ML INJ ONE ×2 (14:49→15:45)
[2018-10-27] MEDS: HYDROMORPHONE HCL 2 MG/ML inj ONE ×4 (15:20→15:40)
[2018-10-27] MEDS ORDERED: KETOROLAC 30 MG/ML INJ ONE (15:23)
--- NOTE | 2018-10-27 15:31 | P.OP ---
Preoperative diagnosis: Pelvic abscess Postoperative diagnosis: Same Primary procedure: Laparoscopic converted to open drainage of pelvic abscess Anesthesia: General Estimated blood loss: Less than 20 cc Specimen: None sh Operative Technique: The patient brought the operating room and placed supine on the table. After the induction of adequate general endotracheal anesthesia, the area of the abdomen was prepped with a DuraPrep solution use draped in usual aseptic manner. Attention was turned towards the emboli kiss with a patent patient had a previous laparoscopy this and skin incision was opened and the laparoscoped was now used to enter the peritoneal cavity in this area but through a separate facile incision. On entering the peritoneal cavity recreated pneumoperitoneum to approximately 12 mm of mercury and under direct vision a for a 5 mm trocar was placed in the lower midline and 1 in the left lateral side of the abdomen. We were now able to visualize the peritoneal contents. We could see the right lower quadrant Myriam greater on the for there were some adhesions of the cecum lateral sidewall but otherwise everything appeared to be grossly normal ill- looking down into the pelvis however we could see that there were some firm adhesions between the peritoneal reflection just behind the pubic symphysis and the small bowel in that area. Gentle attempts were made to try and mobilize this using blunt sharp dissection. However it became quickly apparent that we were going to be unsuccessful in our attempts to proceed in this fashion. Effort to try and avoid any inadvertent enterotomies or damage to surrounding structures, the decision was made to open the patient at this point we converted to exploratory laparotomy after making a generous midline incision from the emboli kiss down towards the pubic symphysis. The fascia was opened in the midline. The muscles divided the posterior sheath was grasped we into the peritoneal cavity at this point we could see in it much better detail the adhesions of the small bowel to the pelvic rim in this area using blunt sharp dissection were now able carefully maneuver this to take down the and mobilize the small bowel. This having unroofed her abscess we were now able to drain this we got approximately 100 cc or so of thick purulent foul-smelling material from it the surrounding loculations were then broken down using blunt sharp dissection the small bowel was fully mobilized out of the pelvis a 10 mm drain Oleg-Guevara drain was placed down into the area of the abscess cavity and brought out through a separate stab wound incision placed in the right lower quadrant. At this point the cement was saline solution until the effluent was clear. There was some slight blood tinge into it will be finally completed our irrigation the midline incision was now closed with a running suture of PDS lele were used to approximate the skin edges and at the end of the procedure the patient was in a stable condition when sent to the recovery room needle sponge instrument count were correct 1 drain as mentioned thank Complications: None Drain(s): DIANA drain Transferred to: Recovery Room Condition: Good
[2018-10-27] MEDS: PIPER/TAZO/NS 3.375gm 3.375 GM/100 ML BAG IVPB SCH (16:54)
[2018-10-27] MEDS: HYDROCODONE/APAP 7.5/325 MG TAB PO PRN (21:11)
[2018-10-27] MEDS: MORPHINE 4 MG/ML SYR IV PRN (22:35)
[2018-10-28] MEDS: PIPER/TAZO/NS 3.375gm 3.375 GM/100 ML BAG IVPB SCH ×3 (00:42→16:45)
[2018-10-28] MEDS: MORPHINE 4 MG/ML SYR IV PRN ×7 (03:01→20:03)
[2018-10-28 04:50] LABS: Absolute Lymphocytes (CBC) 0.7 K/uL (0.7-4.9); Basophils % 0.2 % (0-1.3); Hematocrit 36.2 % (39.6-49.0); Lymphocytes % 3.2 % (15.3-44.8); MPV 9.2 fL (7.6-11.3); RBC Red Blood Cell Count 4.69 M/uL (4.33-5.43)
[2018-10-28 05:17] LABS: Potassium 3.8 mmol/L (3.5-5.1)
[2018-10-28] MEDS: NA CHLORIDE 0.9% 1,000 ML IV SCH ×2 (06:25→14:14)
--- NOTE | 2018-10-28 14:14 | P.PN ---
Date of Service: 10/28/18 S: Patient feels somewhat better today. Had some type urgent fevers last night. However today has been afebrile. Not much of an appetite. O: Minimal serous fluid through DIANA drain abdomen however is soft vital signs are stable A: Surgically stair P: Possibility Dc DIANA drain in a.m.. Will most likely discharge at that time provided patient remains afebrile over 24 hr.
[2018-10-28] MEDS: HYDROCODONE/APAP 7.5/325 MG TAB PO PRN (21:14)
[2018-10-29] MEDS: PIPER/TAZO/NS 3.375gm 3.375 GM/100 ML BAG IVPB SCH ×3 (00:49→16:30)
[2018-10-29] MEDS: MORPHINE 2 MG/ML SYR IV PRN (01:55)
[2018-10-29] MEDS: HYDROCODONE/APAP 7.5/325 MG TAB PO PRN ×3 (03:02→21:15)
[2018-10-29] MEDS: MORPHINE 4 MG/ML SYR IV PRN (07:20)
[2018-10-29] MEDS: NA CHLORIDE 0.9% 1,000 ML IV SCH ×2 (07:56→13:00)
--- NOTE | 2018-10-29 15:00 | P.PN ---
Date of Service: 10/29/18 S: Patient improving, has been up ambulating. Pain is becoming more manageable but still requiring p.o. narcotics. O: Incisions clean, minimal amount of serous drainage coming from DIANA drain. A: Patient is improving P: I will keep him for 3 more doses of antibiotics. Anticipate discharge in a.m.. Will discharge him with a out his DIANA drain, and have him follow up with me next week in my office. I have explained this to him. He will ambulate more today, try to improve his appetite, and see if he can convert fully to oral pain medicine.
[2018-10-29] MEDS ORDERED: MAGNESIUM HYDROXIDE 8% 30 ML PO ONE (20:41)
[2018-10-30] MEDS: PIPER/TAZO/NS 3.375gm 3.375 GM/100 ML BAG IVPB SCH ×2 (01:00→08:34)
[2018-10-30] MEDS: HYDROCODONE/APAP 7.5/325 MG TAB PO PRN ×2 (01:37→05:26)
[2018-10-30 07:40] LABS: Absolute Lymphocytes (CBC) 1.2 K/uL (0.7-4.9); Basophils % 0.3 % (0-1.3); Hematocrit 36.1 % (39.6-49.0); Lymphocytes % 7.8 % (15.3-44.8); MPV 9.4 fL (7.6-11.3); RBC Red Blood Cell Count 4.61 M/uL (4.33-5.43)
[2018-10-30 08:41] VITALS: O2SAT 98
[2018-10-30] MEDS: MORPHINE 2 MG/ML SYR IV PRN ×2 (12:05→12:10)
[2018-10-30 12:46] VITALS: BP 129/68; TEMP 98.1
--- NOTE | 2018-10-30 14:42 | P.PN ---
Date of Service: 10/30/18 S: Patient doing well today. Has been up ambulating. Asking to go home. O: Vital signs are stable, abdomen is soft, looks well A: Surgically stable PE: I asked the nurses to remove the Oleg-Guevara drain earlier. They tried but were unsuccessful. The patient has been medicated at this point. The Oleg-Guevara drain was removed. The patient found it rather uncomfortable not truly painful but just very uncomfortable. Minimal drainage out through drainage site. Stressing applied. He will see me next week in my office. I will discharge him today on Augmentin 875 mg p.o. to b.i.d. for 7 days.
== END 2018-10-30 17:11 | disposition home or self-care (01) | DRG 358 ==
LOC: SUPCPDRO 18:13 → ER 18:13 → ERHOLD 10-27 01:16 → 4TH 10-27 01:57 → OBSVTOIN 10-27 13:43
PROVIDERS: ADMIT Surgery; ATTEND Surgery
PROC: 0WJJ4ZZ Inspection of Pelvic Cavity, Percutaneous Endoscopic Approach (ICD-10-PCS; 2018-10-27)
PROC: 0W9H00Z Drainage of Retroperitoneum with Drainage Device, Open Approach (ICD-10-PCS; principal; 2018-10-27 13:00)
DX: K65.1 Peritoneal abscess (principal); R50.9 Fever, unspecified
CPT/HCPCS: 36415; 74177; 80048; 80076; 81003; 81015; 83605; 83690; 85025; 96361; 96374; 96375; 99285; G0378; J1170; J2250; J2270; J2405; J2543; J2704; J2710; J3010; J7030; Q9967